=== PATIENT | female | born 1950 | race Caucasian/White ===

== ENCOUNTER 2016-08-31 07:30 | Outpatient (CLI) | payer OTHER ==
--- NOTE | 2016-09-03 21:12 | DIAGNOSTIC IMAGING REPORT ---
PROCEDURE: CT IAC/PF/ORBIT W/OUT CONTRAST INDICATION: HEARING LOSS (H90.5) TECHNIQUE: Thin axial scans with coronal re-formations. COMPARISON: None. FINDINGS: Right: Normal middle ear without mass or inflammatory process. Normal ossicles without displacement or erosion. Normal oval window without evidence of otosclerosis. Mastoid air cells are clear. Normal external auditory canal. Left: Normal visually without mass or inflammatory process. Normal ossicles without displacement or erosion. Normal alignment without evidence of otosclerosis. Mastoid air cells are clear. Normal external auditory canal. IMPRESSION: 1. Normal study
== END 2016-08-31 23:00 ==
LOC: CT SRH 07:30
DX: H90.5 Unspecified sensorineural hearing loss (principal)